=== PATIENT | male | born 1970 | race Caucasian/White ===

== ENCOUNTER 2017-10-10 11:30 | Emergency (ER) | payer OTHER ==
[2017-10-10 11:49] VITALS: BP 125/81; PULSE 72; RESP 20; TEMP 98.1; O2SAT 100
--- NOTE | 2017-10-10 15:11 | ED PDOC ---
HPI: Back Time Seen by Provider: 10/10/17 12:10 Chief Complaint (Nursing): Back Pain Chief Complaint (Provider): Back Pain History Per: Patient History/Exam Limitations: no limitations Onset/Duration Of Symptoms: Days (x 1 week) Current Symptoms Are (Timing): Still Present Additional Complaint(s): Patient is a 47 y/o male who presents complaining of pain to the bilateral lower back for 1 week. States he had bent over to pick something up, and when standing up he noticed sudden onset of pain. Taking Tylenol with mild improvement, last dose was yesterday. Patient reports pain worsens with movement. Otherwise: (-) nausea, (-) vomiting, (-) urinary symptoms (-) paresthesias, (-) weakness, (-) acute bowel or bladder dysfunction, (-) chest pain, (-) SOB, (-) fever. Has no history of prior back problems or cancer. Pain is rated as 8/10. PMD: Dr. Magaña Past Medical History Reviewed: Historical Data, Nursing Documentation, Vital Signs Vital Signs: Last Vital Signs Temp 98.1 F 10/10/17 11:46 Pulse 72 10/10/17 11:46 Resp 20 10/10/17 11:46 BP 125/81 10/10/17 11:46 Pulse Ox 100 10/10/17 11:46 - Medical History PMH: Depression Denies: Asthma, Atrial Fibrillation, Bronchitis, Cardia Arrhythmia, CHF, COPD , Emphysema, HTN, Hypercholesterolemia, Mitral Valve Prolapse, Peripheral Edema , Pneumonia, Chronic Kidney Disease, Sleep Apnea Comment Only: Pulmonary Embolism (possible pe on ct) - Surgical History Surgical History: Denies: Pacemaker Other surgeries: Abdominal surgery for intestinal perforation, surgery to wash out abdominal infection - Family History Family History: States: Unknown Family Hx - Social History Current smoker - smoking cessation education provided: No Alcohol: None Drugs: Denies - Immunization History Hx Tetanus Toxoid Vaccination: No Hx Influenza Vaccination: No Hx Pneumococcal Vaccination: No - Home Medications Home Medications: Ambulatory Orders Medication Instructions Recorded Oxycodone HCl/Acetaminophen 1 tab PO Q4 PRN #0 tab 11/14/14 [Percocet 325 mg-5 mg] Oxycodone HCl/Acetaminophen 1 tab PO Q4H PRN #30 tab 12/29/14 [Percocet 325 mg-5 mg] Cyclobenzaprine [Cyclobenzaprine 10 mg PO TID PRN #12 tab 10/10/17 HCl] Meloxicam [Mobic] 15 mg PO DAILY PRN #10 tab 10/10/17 - Allergies Allergies/Adverse Reactions: Allergies Allergy/AdvReac Type Severity Reaction Status Date / Time No Known Allergies Allergy Verified 10/10/17 11:46 Review of Systems ROS Statement: Except As Marked, All Systems Reviewed And Found Negative Constitutional: Negative for: Fever Cardiovascular: Negative for: Chest Pain Respiratory: Negative for: Shortness of Breath Gastrointestinal: Negative for: Nausea, Vomiting, Abdominal Pain Genitourinary Male: Negative for: Incontinence Musculoskeletal: Positive for: Back Pain Neurological: Negative for: Weakness, Numbness Physical Exam - Reviewed Nursing Documentation Reviewed: Yes Vital Signs Reviewed: Yes - Physical Exam Comments: GENERAL APPEARANCE: Patient is awake, alert, oriented x 3, in no acute distress. Ambulatory in ED without difficulty. SKIN: Warm, dry; (-) cyanosis. EYES: (-) conjunctival pallor. ENMT: Mucous membranes moist. NECK: Supple, FROM (-) tenderness, (-) stiffness CHEST AND RESPIRATORY: (-) rales, (-) rhonchi, (-) wheezes; breath sounds equal bilaterally. HEART AND CARDIOVASCULAR: (-) irregularity; (-) murmur, (-) gallop. ABDOMEN AND GI: Soft; (-) tenderness; (-) distension. BACK: (+) bilateral paralumbar tenderness, (-) midline tenderness, (-) CVA tenderness. Straight leg raising (-) bilaterally. EXTREMITIES: (-) deformity. Distal pulses good bilaterally. NEURO AND PSYCH: Mental status as above. Intact sensation bilaterally; normal strength in extension of the knees, plantar and dorsiflexion of the toes. - ECG O2 Sat by Pulse Oximetry: 100 (RA) Pulse Ox Interpretation: Normal Medical Decision Making Medical Decision Making: Clinical Impression: Acute lower back pain, Lumbosacral strain Time: 13:03 Initial Plan: * Flexeril 10 mg PO (Patient states he is not driving home.) * Toradol 60 mg IM * Tramadol 50 mg PO * Reevaluation 14:25 On reevaluation, patient reports pain is improved to 2/10. Patient is ambulatory around the ED, steady gait. No acute distress. No focal deficits. Based on history, exam and diagnostic results plan will be for outpatient follow up. VSS. Patient will be discharged home with prescriptions for Mobic and Cyclobenzaprine. Advised to follow up with primary care physician/ortho( referral provided) in 1-2 days without fail. Advised to take medication as prescribed. Return to the emergency room at any time for any new or worsening symptoms. Patient states he fully agrees with and understands discharge instructions. States that he agrees with the plan and disposition. Verbalized and repeated discharge instructions and plan. I have given the patient opportunity to ask any additional questions. Scribe Attestation: Documented by Beata Rodriguez, acting as a scribe for Sarah Chu PA-C Provider Scribe Attestation: All medical record entries made by the Scribe were at my direction and personally dictated by me. I have reviewed the chart and agree that the record accurately reflects my personal performance of the history, physical exam, medical decision making, and the department course for this patient. I have also personally directed, reviewed, and agree with the discharge instructions and disposition. Disposition - Clinical Impression Clinical Impression: Acute back pain, Back strain, Low back pain - Patient ED Disposition Is Patient to be Admitted: No Counseled Patient/Family Regarding: Diagnosis, Need For Followup, Rx Given - Disposition Referrals: Madi Alexis III, MD [Staff Provider] - Disposition: Routine/Home Disposition Time: 14:31 Condition: IMPROVED Prescriptions: Cyclobenzaprine [Cyclobenzaprine HCl] 10 mg PO TID PRN #12 tab PRN Reason: Muscle Spasm Meloxicam [Mobic] 15 mg PO DAILY PRN #10 tab PRN Reason: Pain, Moderate (4-7) Instructions: Muscle Strain, Low Back Pain in Adults, Back Exercises Forms: [employer] (Mongolian), [facility] ED School/Work Excuse Print Language: HAITIAN - POA Present On Arrival: None
== END 2017-10-10 14:42 | disposition home or self-care (01) ==
LOC: H.ER 11:30
DX: S39.012A Strain of muscle, fascia and tendon of lower back, initial encounter (principal); X50.9XXA Other and unspecified overexertion or strenuous movements or postures, initial encounter; Y92.89 Other specified places as the place of occurrence of the external cause; F32.9 Major depressive disorder, single episode, unspecified; Z86.711 Personal history of pulmonary embolism
CPT/HCPCS: 96372; 99283; J1885

== ENCOUNTER 2017-11-26 06:02 | Day surgery (SDC) | payer OTHER ==
[2017-11-20 08:36] VITALS: BMI 28.2
[2017-11-26] MEDS ORDERED: Lactated Ringer's 1,000 ML IV ONE ×2 (06:43→09:10)
--- NOTE | 2017-11-26 07:29 | CP.SDSHP ---
Same Day Surgery H & P - History Proposed Procedure: Laparoscopic incisional hernia repair Pre-Op Diagnosis: Incisional hernia repair - Previous Medical/Surgical History Pain: 0. No Pain Previous Surgical History: Ex-lap for perforated viscus - Allergies Allergies: Allergies No Known Allergies Allergy (Verified 10/10/17 11:46) - Current Medications Current Medications: denies - Physical Exam Vital Signs: Vital Signs 11/26/17 11/26/17 06:31 06:34 Temperature 98.4 F Pulse Rate 79 79 Respiratory 20 Rate Blood Pressure 144/89 O2 Sat by Pulse 99 Oximetry Mental Status: Alert & Oriented x3 Neuro: WNL Heart: WNL Lungs: WNL GI: Other (midline incision with incisional hernia) - Impression Impression: 47 M with incisional hernia going for laparosopic incisional hernia repair Pt. Evaluated Today:Candidate for Anesthesia & Procedure: Yes - Date & Time Date: 11/26/17 Time: 07:30 Short Stay Discharge - Short Stay Discharge Admitting Diagnosis/Reason for Visit: K43.2 Disposition: HOME/ ROUTINE Referrals: Uriel Higgins MD [Staff Provider] - Additional Instructions (Diet, Activity): Regular diet Activity as tolerated except no heavy lifting for 4-6 weeks Keep incisions clean and dry May shower Follow up with Dr. Higgins as outpatient within 1-2 weeks
[2017-11-26] MEDS ORDERED: Propofol 10 mg/ml Inj (20 ML) ONE (07:32)
[2017-11-26] MEDS ORDERED: Lidocaine 4% (Laryng-O-Jet) Kit MM ONE (07:33)
[2017-11-26] MEDS ORDERED: Midazolam 2 MG/2 ML VIAL ONE (07:33)
[2017-11-26] MEDS ORDERED: Lidocaine 1% 5ml Abboject IV ONE (07:33)
[2017-11-26] MEDS ORDERED: Succinylcholine 200 mg/10 ml Inj IV ONE (07:33)
[2017-11-26] MEDS ORDERED: Vecuronium 10 mg Inj ONE (07:37)
[2017-11-26] MEDS ORDERED: Neostigmine 1:1000 (1 mg/ml) Inj ONE (07:37)
[2017-11-26] MEDS ORDERED: Bupivacaine 0.5% Inj(30mL) ONE (07:53)
[2017-11-26] MEDS ORDERED: Lidocaine 2% Inj (20ml) ONE (07:53)
[2017-11-26] MEDS ORDERED: Bupivacaine 0.5% Inj(30mL) IJ ONE ×2 (08:27→09:03)
--- NOTE | 2017-11-26 09:25 | PCM.SURG1 ---
Surgeon's Initial Post Op Note - Surgeon's Notes Surgeon: Dr. Higgins, Dr. Poe Senior Treasury Analyst: Dr. Smith PGY2, Dr. Perez PGY1 Type of Anesthesia: General Endo Pre-Operative Diagnosis: incisional hernia Operative Findings: see operative report Post-Operative Diagnosis: see operative report Operation Performed: extensive lysis of adhesions. incisional hernia repair with mesh placement Specimen/Specimens Removed: none Estimated Blood Loss: EBL {In ML}: 5 Blood Products Given: N/A Drains Used: No Drains Post-Op Condition: Good Date of Surgery/Procedure: 11/26/17 Time of Surgery/Procedure: 07:45
[2017-11-26] MEDS ORDERED: Lactated Ringer's 1,000 ML IV SCH (09:30)
[2017-11-26] MEDS: HYDROmorphone 0.5 mg/0.5 ml ISec IVP PRN ×2 (09:40→10:05)
[2017-11-26] MEDS ORDERED: HYDROmorphone 0.5 mg/0.5 ml ISec IVP PRN (09:59)
[2017-11-26] MEDS ORDERED: Oxycodone/Acetaminophen 5/325 mg Tab PO PRN (10:00)
[2017-11-26 11:48] VITALS: O2SAT 97
[2017-11-26 13:39] VITALS: BP 138/76; PULSE 85; RESP 18; TEMP 98
--- NOTE | 2017-11-26 22:11 | OP ---
PROCEDURE DATE: 11/26/2017 PREOPERATIVE DIAGNOSIS: Incarcerated hernia. POSTOPERATIVE DIAGNOSIS: Incarcerated hernia. OPERATION PERFORMED: Laparoscopic repair of incarcerated incisional hernia. SURGEON: Uriel Higgins MD HISTORIC SITES SUPERVISOR: Jose Carlos Poe MD SECOND HISTORIC SITES SUPERVISOR: residential real estate assistant. DIAGNOSES: Incarcerated umbilical/incisional hernia. OPERATIVE FINDINGS: Multiple loops of small bowel adhesed to the internal aspect of the hernia as well as multiple adhesions to the abdominal wall. OPERATIVE PROCEDURE: The patient was taken to the operating room and placed supine on the operating room table. After induction of general anesthesia, a Bennett catheter was placed. The abdomen was prepped and draped in a standard surgical fashion. Once that was done, the patient had an 11-mm trocar placed in the left upper quadrant, subcostal region under direct vision. The abdomen was then insufflated and a diagnostic laparoscopy was performed. The patient was found to have multiple adhesions to the abdominal wall of both small bowel as well as omentum. A second 5-mm trocar was placed on the left side of the abdomen under direct vision. Once that was done, there were several small filmy adhesions, which were then taken down sharply using the scissor. It was noted that there was also several omentum adhesed to the abdominal wall, which was also taken down sharply and using the electrocautery. At that point, the small intestine was encountered densely adherent to the abdominal wall and the decision was made to make a second 5-mm trocar in the left side of the abdomen, this was then placed, and using the trocar for traction, careful dissection of the small bowel of the abdominal wall with the scissor was done. Care was taken to maintain the integrity of the small bowel. The small bowel was inspected after each segment was freed up and there was no evidence of any damage to the small bowel. Once the tedious dissection was done, the small bowel was then once again inspected and there was no evidence of damage to the small bowel. The abdominal wall was then inspected and the patient was found to have approximately 4 to 5 cm defect between the 2 incisions, which had been freed from the surrounding corrective tissues. A 15-cm circular mesh was then the stay suture and placed into the abdomen through the 11-mm trocar. This was then grabbed using a suture retrieval device and pulled up to the abdominal wall. The orientation of the mesh was confirmed and the mesh was then tacked into position using the Securestrap tacking device. Once this was done, the area was inspected. There was no evidence of bleeding. There was good coverage of the hernia. An inspection of the bowel revealed no evidence of damage to the bowel. At that point, the trocars were removed under direct vision. The trocar sites were closed using 4-0 Monocryl. The patient was awaked from anesthesia and transported to recovery in satisfactory condition. Sponge, instrument and needle counts were correct at the end of the case. $#DTPHYNAME DD: $#DTDICT $#TMDICT([facility]:mm:ss) DT: $#DTTRAN $#TMTRAN([facility]:mm:ss) Job # $#DOCID
== END 2017-11-26 13:55 | disposition home or self-care (01) ==
LOC: H.OPSURG 06:02
PROVIDERS: ATTEND Surgery
DX: K43.2 Incisional hernia without obstruction or gangrene (principal)
CPT/HCPCS: 49655; J0330; J0690; J1170; J2250; J2704; J2710; J2765; J3010; J7120